=== PATIENT | female | born 1995 | race Caucasian/White ===

== ENCOUNTER 2023-11-28 07:09 | Emergency (ER) | payer OTHER ==
[~2023-11-28] VITALS: Ht 162.6 cm; Wt 65.8 kg
[2023-11-28 07:38] VITALS: BP 142/81; TEMP 98.1; O2SAT 100
[2023-11-28] MEDS ORDERED: PSEU-298 PO (08:03)
[2023-11-28] MEDS ORDERED: AMOX-430 PO (08:03)
== END 2023-11-28 08:14 | disposition home or self-care (01) ==
LOC: ER 07:24
DX: J32.9 Chronic sinusitis, unspecified (principal); R05.9 Cough, unspecified; R09.81 Nasal congestion; H92.03 Otalgia, bilateral